=== PATIENT | female | born 1950 | race Caucasian/White ===

== ENCOUNTER 2017-08-22 12:09 | Day surgery (SDC) | payer OTHER ==
[2017-08-22] MEDS ORDERED: FENTAnyl 50 MCG/ML VIAL (14:57)
[2017-08-22] MEDS ORDERED: MIDAZOLAM 1 MG/ML 2 ML INJ (14:57)
[2017-08-22] MEDS ORDERED: PROPOFOL 60 ML (14:57)
[2017-08-22] MEDS ORDERED: LIDOCAINE 2% (SDV) 5 ML INJ (14:57)
== END 2017-08-22 18:07 | disposition home or self-care (01) ==
LOC: GIL 12:09
DX: Z12.11 Encounter for screening for malignant neoplasm of colon (principal); D12.4 Benign neoplasm of descending colon; D12.5 Benign neoplasm of sigmoid colon; K57.90 Diverticulosis of intestine, part unspecified, without perforation or abscess without bleeding
CPT/HCPCS: 45380; 88305